=== PATIENT | female | born 1945 | race Caucasian/White ===

== ENCOUNTER 2016-12-11 15:25 | Inpatient (IN) | payer MEDICARE, OTHER ==
--- NOTE | 2016-12-11 15:54 | ER Document Report ---
Doctor's Note Notes: 12/11/16 15:59 71-year-old female history of COPD recent cardiac stents presents with complaints of one to 2 week duration of shortness of breath. Patient was seen by primary care physician diagnosed as pneumonia, was given inhaler and 17, patient has been noted to be satting at 87% on room air at home. Daughter-in- law is a nurse notes that she is not on home O2. Patient on arrival was satting 83% on room air I have greeted and performed a rapid initial assessment of this patient. A comprehensive ED assessment and evaluation of the patient, analysis of test results and completion of the medical decision making process will be conducted by additional ED providers. Lungs: Faint inspiratory respiratory wheezing all throughout
[2016-12-11] MEDS ORDERED: IPRATROPIUM/ALBUTEROL 0.5-2.5 MG/3 ML AMPUL NEB ONE ×3 (15:58→15:59)
[2016-12-11] MEDS ORDERED: METHYLPREDNISOLONE INJ 125 MG/2 ML SDV IV ONE (15:58)
[2016-12-11 16:19] LABS: ABSOLUTE LYMPHOCYTES (AUTO) 1.2 10^3/uL (0.5-4.7); ABSOLUTE MONOCYTES (AUTO) 1.1 10^3/uL (0.1-1.4); BASOPHILS % (AUTO) 0.2 % (0-2); EOSINOPHILS % (AUTO) 0.1 % (0-6); HEMOGLOBIN 11.9 g/dL (12.0-15.5); HGB HCT DIFFERENCE 0.7; LYMPHOCYTES % (AUTO) 10.6 % (13-45); MEAN CORPUSCULAR HEMOGLOBIN 30.2 pg (27.0-33.4); MEAN CORPUSCULAR HGB CONC 33.9 g/dL (32.0-36.0); MEAN CORPUSCULAR VOLUME 89 fl (80-97); MONOCYTES % (AUTO) 10.1 % (3-13); RED BLOOD COUNT 3.94 10^6/uL (3.72-5.28); RED CELL DISTRIBUTION WIDTH 14.5 % (11.5-14.0); WHITE BLOOD COUNT 11.3 10^3/uL (4.0-10.5)
[2016-12-11 16:33] LABS: ALANINE AMINOTRANSFERASE 22 U/L (9-52); ALBUMIN 3.9 g/dL (3.5-5.0); ALKALINE PHOSPHATASE 60 U/L (38-126); ANION GAP 15 (5-19); ASPARTATE AMINO TRANSFERASE 14 U/L (14-36); BILIRUBIN,DIRECT 0.4 mg/dL (0.0-0.4); BILIRUBIN,TOTAL 0.8 mg/dL (0.2-1.3); BLOOD UREA NITROGEN 12 mg/dL (7-20); CALCIUM 9.2 mg/dL (8.4-10.2); CARBON DIOXIDE 27 mmol/L (22-30); CHLORIDE 95 mmol/L (98-107); CREATININE RESULT 0.63 mg/dL (0.52-1.25); GLUCOSE 111 mg/dL (75-110); POTASSIUM 4.2 mmol/L (3.6-5.0); SODIUM 136.6 mmol/L (137-145); TOTAL PROTEIN 7.1 g/dL (6.3-8.2)
[2016-12-11 16:38] LABS: CREATINE KINASE < 20 U/L (30-135)
[2016-12-11 16:45] LABS: CREATINE KINASE MB 0.28 ng/mL (<4.55)
--- NOTE | 2016-12-11 16:45 | ER Document Report ---
ED General - General Chief Complaint: Breathing Difficulty Stated Complaint: DIFFICULTY BREATHING Mode of Arrival: Ambulatory Information source: Patient Notes: This is a 71-year-old female who presents with worsening dyspnea for the past 3 or 4 weeks. She states she has struggled with a cold for the past month. She has had cough and congestion. Her cough has been dry and nonproductive. Today she mentioned to her family that she was short of breath and had no energy and they checked her pulse ox and found it to be 87% on room air. She is not on home oxygen. She does not use nebulizers or inhalers. Secondary to this low pulse ox reading she was brought to the ER by her family. She has received 1 DuoNeb prior to my evaluation and she states she feels just fine. She denies any fevers or chills. She denies any chest pain. TRAVEL OUTSIDE OF THE [place] IN LAST 30 DAYS: No - Related Data Allergies/Adverse Reactions: Penicillins Allergy (Verified 12/11/16 15:36) Sulfa (Sulfonamide Antibiotics) Allergy (Verified 12/11/16 15:36) Past Medical History - General Information source: Patient - Social History Smoking Status: Current Every Day Smoker Frequency of alcohol use: None Drug Abuse: None Family History: Reviewed & Not Pertinent Patient has suicidal ideation: No Patient has homicidal ideation: No - Past Medical History Cardiac Medical History: Reports: Hx Hypertension, Hx Peripheral Vascular Disease Pulmonary Medical History: Reports: None Endocrine Medical History: Reports: Hx Diabetes Mellitus Type 2 Renal/ Medical History: Denies: Hx Peritoneal Dialysis Past Surgical History: Reports: Hx Appendectomy, Hx Hysterectomy Review of Systems - Review of Systems Notes: REVIEW OF SYSTEMS: CONSTITUTIONAL : Denies fever, chills, or sweats. EENT: Denies eye, ear, throat, or mouth pain or symptoms. CARDIOVASCULAR: Denies chest pain. RESPIRATORY: As per history of present illness GASTROINTESTINAL: Denies abdominal pain. Denies nausea, vomiting, or diarrhea. GENITOURINARY: Denies difficulty urinating, painful urination, burning, frequency, or blood in urine. MUSCULOSKELETAL: Denies neck or back pain or joint pain or swelling. SKIN: Denies rash or skin lesions. HEMATOLOGIC : Denies easy bruising or bleeding. LYMPHATIC: Denies swollen, enlarged glands. NEUROLOGICAL: Denies altered mental status or loss of consciousness. Denies headache. PSYCHIATRIC: Denies anxiety or stress or depression. ALL OTHER SYSTEMS REVIEWED AND NEGATIVE. Physical Exam - Vital signs Vitals: Temp Pulse Resp BP Pulse Ox 98.6 F 102 H 20 141/57 H 83 L 12/11/16 15:37 12/11/16 15:37 12/11/16 15:37 12/11/16 15:37 12/11/16 15:37 - Notes Notes: PHYSICAL EXAMINATION: GENERAL: Thin frail elderly female who is pleasant and conversant in no acute distress. HEAD: Atraumatic, normocephalic. EYES: Pupils equal round and reactive to light, extraocular movements intact, sclera anicteric, conjunctiva are normal. ENT: nares patent, oropharynx clear without exudates. Moist mucous membranes. NECK: Normal range of motion, supple without lymphadenopathy LUNGS: Breath sounds clear to auscultation bilaterally and equal. No wheezes rales or rhonchi. HEART: Regular rate and rhythm without murmurs ABDOMEN: Soft, nontender, normoactive bowel sounds. No guarding, no rebound. No masses appreciated. EXTREMITIES: Normal range of motion, no pitting or edema. No cyanosis. NEUROLOGICAL: Cranial nerves grossly intact. Normal speech. No gross focal motor or sensory deficits appreciated. PSYCH: Normal mood, anxious affect. SKIN: Warm, Dry, normal turgor, no rashes or lesions noted. Course - Re-evaluation Re-evalutation: 12/11/16 20:07 Patient states that she feels fine and that she is fine. However she was taken off her nasal cannula O2 in order to ambulate to the bathroom and she was noted to desat to 82% on room air. We discussed her CT angiogram results (negative for PE/infiltrate) and the fact that her symptoms are likely secondary to COPD. She will likely need home O2. She is resistant initially to admission, but now has agreed to stay for regular neb treatments and O2. Questions from patient and family answered - Vital Signs Vital signs: Temp Pulse Resp BP Pulse Ox 98.6 F 102 H 21 H 141/57 H 92 12/11/16 15:37 12/11/16 15:37 12/11/16 18:00 12/11/16 15:37 12/11/16 18:00 - Laboratory Result Diagrams: 12/11/16 15:56 12/11/16 15:56 Laboratory results interpreted by me: 12/11/16 12/11/16 12/11/16 15:56 15:56 17:50 WBC 11.3 H Hgb 11.9 L Hct 35.0 L RDW 14.5 H Seg Neutrophils % 79.0 H Lymphocytes % 10.6 L Absolute Neutrophils 9.0 H VBG pH 7.43 H Sodium 136.6 L Chloride 95 L Glucose 111 H Creatine Kinase < 20 L Urine Ketones 12/11/16 19:45 WBC Hgb Hct RDW Seg Neutrophils % Lymphocytes % Absolute Neutrophils VBG pH Sodium Chloride Glucose Creatine Kinase Urine Ketones 20 H Discharge - Discharge Clinical Impression: COPD exacerbation, Hypoxia Condition: Fair Disposition: ADMITTED OBSERVATION Admitting Provider: Hospitalist - Dr. Hernández Unit Admitted: Telemetry Referrals: TANVI CASTRO MD [Primary Care Provider] - Follow up as needed
[2016-12-11 16:46] LABS: TROPONIN I < 0.012 ng/mL
[2016-12-11 17:59] LABS: VENOUS BLOOD BASE EXCESS 1.7 mmol/L; VENOUS BLOOD HCO3 26.2 mmol/L (20-32); VENOUS BLOOD PCO2 40.4 mmHg (35-63); VENOUS BLOOD PH 7.43 (7.30-7.42)
[2016-12-11] MEDS ORDERED: LEVOFLOXACIN 500 MG/D5W RTU 100 ML IV ONE (19:58)
[2016-12-11 20:02] LABS: APPEARANCE,URINE CLEAR; BILIRUBIN,URINE NEGATIVE (NEGATIVE); GLUCOSE, URINE NEGATIVE (NEGATIVE); KETONES,URINE 20 mg/dL (NEGATIVE); LEUKOCYTE ESTERASE,URINE NEGATIVE (NEGATIVE); NITRITE,URINE NEGATIVE (NEGATIVE); PROTEIN,URINE NEGATIVE (NEGATIVE); UROBILINOGEN,URINE NEGATIVE mg/dL (<2.0)
[2016-12-11] MEDS ORDERED: ACETAMINOPHEN 325 MG TABLET PO PRN (20:07)
[2016-12-11] MEDS ORDERED: GUAIFENESIN SYRP 200 MG/10 ML UDC PO PRN (20:07)
[2016-12-11] MEDS ORDERED: IPRATROPIUM/ALBUTEROL 0.5-2.5 MG/3 ML AMPUL NEB PRN (20:07)
[2016-12-11] MEDS ORDERED: PREDNISONE 20 MG TABLET PO ONE (20:30)
[2016-12-11] MEDS ORDERED: FLUTICASONE NASAL SPRAY 50 MCG/SPRY 120 SPRAY/16 GM ONE (20:51)
[2016-12-11] MEDS: GUAIFENESIN 600 MG TABLET.SA PO SCH (21:06)
[2016-12-11] MEDS: FLUTICASONE NASAL SPRAY 50 MCG/SPRY 120 SPRAY/16 GM NASL SCH (21:06)
[2016-12-11] MEDS: HEPARIN SOD (PORCINE) 5,000 UNIT/ML 1 ML SYRINGE SUBCUT SCH (21:07)
[2016-12-11] MEDS ORDERED: RISPERIDONE 0.25 MG TABLET PO PRN (21:53)
--- NOTE | 2016-12-11 21:53 | PDOC H&P ---
History of Present Illness Admission Date/PCP: 12/11/16 20:18 TANVI CASTRO MD Patient complains of: Worsening baseline shortness of breath History of Present Illness: ARAM SALTER is a 71 year old female with a past medical history of advanced COPD with ongoing tobacco dependence, coronary artery disease, hypertension, peripheral vascular disease and type II diabetes. Noted by family members to be short of breath prompting home pulse oximeter check resulting in 87% on room air. In the emergency room she has mild leukocytosis, tachypnea and tachycardia oxygen saturations in the 80s on room air she's referred to the hospitalist for admission for COPD exacerbation. Past Medical History Cardiac Medical History: Reports: Hypertension, Peripheral Vascular Disease Pulmonary Medical History: Reports: None, Chronic Obstructive Pulmonary Disease (COPD) Endocrine Medical History: Reports: Diabetes Mellitus Type 2 Psychiatric Medical History: Reports: Tobacco Dependency Past Surgical History Past Surgical History: Reports: Appendectomy, Hysterectomy Social History Information Source: Patient, Emergency Med Personnel Lives with: Family Smoking Status: Current Every Day Smoker - Advance Directive Resuscitation Status: Full Code Family History Family History: COPD, Hypertension Parental Family History Reviewed: Yes Children Family History Reviewed: Yes Sibling(s) Family History Reviewed.: Yes Medication/Allergy Allergies/Adverse Reactions: Penicillins Allergy (Verified 12/11/16 15:36) Sulfa (Sulfonamide Antibiotics) Allergy (Verified 12/11/16 15:36) Review of Systems Constitutional: ABSENT: chills, fever(s), headache(s), weight gain, weight loss Eyes: ABSENT: visual disturbances Ears: ABSENT: hearing changes Cardiovascular: ABSENT: chest pain, dyspnea on exertion, edema, orthropnea, palpitations Respiratory: PRESENT: dyspnea. ABSENT: cough, hemoptysis, sputum Gastrointestinal: ABSENT: abdominal pain, constipation, diarrhea, hematemesis, hematochezia, nausea, vomiting Genitourinary: ABSENT: dysuria, hematuria Musculoskeletal: ABSENT: joint swelling Integumentary: ABSENT: rash, wounds Neurological: PRESENT: as per HPI Psychiatric: PRESENT: other - Odd affect dismissive of medical personnel, wearing sunglasses, talking on the phone. ABSENT: anxiety, depression, homidical ideation, suicidal ideation Endocrine: ABSENT: cold intolerance, heat intolerance, polydipsia, polyuria Hematologic/Lymphatic: ABSENT: easy bleeding, easy bruising Physical Exam Vital Signs: Temp Pulse Resp BP Pulse Ox 98.6 F 102 H 21 H 141/57 H 92 12/11/16 15:37 12/11/16 15:37 12/11/16 18:00 12/11/16 15:37 12/11/16 18:00 General appearance: PRESENT: mild distress, thin Head exam: PRESENT: atraumatic, normocephalic Eye exam: PRESENT: conjunctiva pink, EOMI, PERRLA. ABSENT: scleral icterus Ear exam: PRESENT: bleeding Mouth exam: PRESENT: moist, tongue midline Neck exam: ABSENT: carotid bruit, JVD, lymphadenopathy, thyromegaly Respiratory exam: PRESENT: accessory muscle use, crackles, prolonged expiratory phas, symmetrical, tachypnea Cardiovascular exam: PRESENT: RRR. ABSENT: diastolic murmur, rubs, systolic murmur Pulses: PRESENT: normal dorsalis pedis pul Vascular exam: PRESENT: normal capillary refill GI/Abdominal exam: PRESENT: normal bowel sounds, soft. ABSENT: distended, guarding, mass, organolmegaly, rebound, tenderness Rectal exam: PRESENT: deferred Extremities exam: PRESENT: full ROM. ABSENT: calf tenderness, clubbing, pedal edema Neurological exam: PRESENT: alert, awake, oriented to person, oriented to place , oriented to time, oriented to situation, CN II-XII grossly intact. ABSENT: motor sensory deficit Psychiatric exam: PRESENT: unusual affect Skin exam: PRESENT: dry, intact, warm. ABSENT: cyanosis, rash Results Impressions: Chest X-Ray 12/11/16 15:53 IMPRESSION: NO ACUTE RADIOGRAPHIC FINDING IN THE CHEST. Chest/Abdomen CTA 12/11/16 18:18 IMPRESSION: No acute findings. No evidence of pulmonary emboli. Assessment & Plan - Diagnosis (1) COPD exacerbation Is this a current diagnosis for this admission?: YesPlan: Should be observed on a monitored bed with oxygen, symptomatic management Flonase, Claritin, DuoNeb, and flutter valve (2) Hypoxia Is this a current diagnosis for this admission?: YesPlan: Secondary to the above continue supplemental oxygen (3) Acute exacerbation of chronic bronchitis Plan: Please see #1 in addition to empiric antibiotics (4) Tobacco dependence Is this a current diagnosis for this admission?: YesPlan: Tobacco Dependence patient received tobacco cessation counseling and offered nicotine replacement options - Time Time Spent: 30 to 50 Minutes
--- NOTE | 2016-12-12 00:06 | EKG REPORT ---
SEVERITY:- ABNORMAL ECG - SINUS RHYTHM : Confirmed by: Tacho Alonzo 12-Dec-2016 00:05:26
[2016-12-12] MEDS ORDERED: LACTULOSE SYRUP 20 GM/30 ML UDCUP PO ONE (00:43)
[2016-12-12 04:46] LABS: HEMATOCRIT 33.5 % (36.0-47.0); HEMOGLOBIN 11.2 g/dL (12.0-15.5); HGB HCT DIFFERENCE 0.1; MEAN CORPUSCULAR HGB CONC 33.5 g/dL (32.0-36.0); MEAN CORPUSCULAR VOLUME 90 fl (80-97); RED BLOOD COUNT 3.74 10^6/uL (3.72-5.28); RED CELL DISTRIBUTION WIDTH 14.2 % (11.5-14.0); WHITE BLOOD COUNT 10.4 10^3/uL (4.0-10.5)
[2016-12-12 05:03] LABS: ANION GAP 17 (5-19); BLOOD UREA NITROGEN 20 mg/dL (7-20); CALCIUM 9.1 mg/dL (8.4-10.2); CARBON DIOXIDE 23 mmol/L (22-30); CHLORIDE 97 mmol/L (98-107); CREATININE RESULT 0.56 mg/dL (0.52-1.25); GLUCOSE 302 mg/dL (75-110); POTASSIUM 3.6 mmol/L (3.6-5.0); SODIUM 136.7 mmol/L (137-145)
[2016-12-12] MEDS: HEPARIN SOD (PORCINE) 5,000 UNIT/ML 1 ML SYRINGE SUBCUT SCH ×3 (05:25→22:46)
[2016-12-12] MEDS: IPRATROPIUM/ALBUTEROL 0.5-2.5 MG/3 ML AMPUL NEB SCH ×3 (08:32→19:41)
[2016-12-12] MEDS: PREDNISONE 20 MG TABLET PO SCH ×2 (09:28→17:06)
[2016-12-12] MEDS: GUAIFENESIN 600 MG TABLET.SA PO SCH ×2 (09:28→22:46)
[2016-12-12] MEDS: FLUTICASONE NASAL SPRAY 50 MCG/SPRY 120 SPRAY/16 GM NASL SCH ×2 (09:29→22:46)
[2016-12-12] MEDS ORDERED: HALOPERIDOL 5 MG TABLET PO PRN (12:20)
[2016-12-12] MEDS ORDERED: GLUCAGON,HUMAN RECOMB 1 MG INJ IM PRN (12:21)
[2016-12-12] MEDS ORDERED: INSULIN LISPRO 100 UNIT/ML 3 ML VIAL SUBCUT PRN (12:21)
[2016-12-12] MEDS ORDERED: DEXTROSE 40% GEL 15 GM TUBE PO PRN ×2 (12:21)
[2016-12-12] MEDS ORDERED: DEXTROSE 50%-WATER 25 GM/50 ML DISP.SYRIN IV PRN ×2 (12:21)
--- NOTE | 2016-12-12 14:44 | PDOC PROGRESS REPORT ---
Subjective Progress Note for:: 12/12/16 Subjective:: Patient reports that her oxygen is always low. She doesn't feel like she needs oxygen. Patient also reports that she has no intention of stopping smoking. Patient complains of anxiety and marital discord. Patient denies chest pain, shortness of breath, abdominal pain, nausea, vomiting , fevers, chills, diarrhea, constipation, headache, new onset weakness. Physical Exam Vital Signs: Temp Pulse Resp BP Pulse Ox 97.3 F 80 19 155/71 H 95 12/12/16 12:00 12/12/16 12:00 12/12/16 12:00 12/12/16 12:00 12/12/16 12:00 Intake & Output 12/11/16 12/12/16 12/13/16 06:59 06:59 06:59 Intake Total 760 Balance 760 Weight 56.5 kg Exam: General: Awake alert and oriented x3, no acute respiratory distress, thin HEENT: AT/NC, PERRL, EOMI, oropharynx is moist, pink, no scleral icterus, no conjunctival injection Neck: No JVD, trachea midline Chest: Bilateral end expiratory wheezes CV: Regular rate and rhythm, normal S1 and S2, no murmur, rub, or gallop Abdomen: Soft, nontender to palpation, nondistended, active bowel sounds; no rebound, rigidity, or guarding Extremities: No cyanosis, clubbing or edema Neuro: Cranial nerves II through XII are grossly intact without focal deficits; awake alert and oriented x3 Psych: Normal mood and affect Results Laboratory Results: 12/12/16 04:21 12/12/16 04:21 12/12/16 12/12/16 04:21 04:21 WBC 10.4 RBC 3.74 Hgb 11.2 L Hct 33.5 L MCV 90 MCH 30.0 MCHC 33.5 RDW 14.2 H Plt Count 225 Sodium 136.7 L Potassium 3.6 Chloride 97 L Carbon Dioxide 23 Anion Gap 17 BUN 20 Creatinine 0.56 Est GFR ( Amer) > 60 Est GFR (Non-Af Amer) > 60 Glucose 302 H Calcium 9.1 Impressions: Chest X-Ray 12/11/16 15:53 IMPRESSION: NO ACUTE RADIOGRAPHIC FINDING IN THE CHEST. Chest/Abdomen CTA 12/11/16 18:18 IMPRESSION: No acute findings. No evidence of pulmonary emboli. Assessment & Plan - Diagnosis (1) COPD exacerbation Is this a current diagnosis for this admission?: YesPlan: Patient on prednisone Levaquin for this. Continue scheduled nebulized treatments Still symptomatic continue to monitor (2) Acute hypoxemic respiratory failure Is this a current diagnosis for this admission?: YesPlan: Patient will need home oxygen. She is 88% rest on room air (3) Mild protein-calorie malnutrition Is this a current diagnosis for this admission?: YesPlan: Patient with a BMI of 17.4. Encourage by mouth intake of food (4) Diabetes mellitus Qualifiers: Diabetes mellitus type: type 2 Diabetes mellitus complication status: with unspecified complications Diabetes mellitus dedicated intermodal truck driver insulin use: without dedicated intermodal truck driver use Qualified Code(s): E11.8 - Type 2 diabetes mellitus with unspecified complications Is this a current diagnosis for this admission?: YesPlan: Resume patient's metformin Will need sliding scale insulin while on steroids. Consider increasing metformin as outpatient (5) Tobacco dependence Is this a current diagnosis for this admission?: YesPlan: Have offered nicotine replacement. She has declined. Have counseled for more than 3 minutes (6) Anemia Qualifiers: Anemia type: unspecified type Qualified Code(s): D64.9 - Anemia, unspecified Is this a current diagnosis for this admission?: Yes - Time Time Spent with patient: 25-34 minutes Medications reviewed and adjusted accordingly: Yes Anticipated discharge: Home Within: within 24 hours, within 48 hours
[2016-12-12] MEDS ORDERED: LISINOPRIL 10 MG TABLET PO ONE (15:00)
[2016-12-12] MEDS: METFORMIN HCL 500 MG TABLET PO SCH (16:07)
[2016-12-12] MEDS ORDERED: HALOPERIDOL LACTATE INJ 5 MG/1 ML VIAL IV ONE (17:00)
[2016-12-13] MEDS: HEPARIN SOD (PORCINE) 5,000 UNIT/ML 1 ML SYRINGE SUBCUT SCH (05:36)
[2016-12-13] MEDS: IPRATROPIUM/ALBUTEROL 0.5-2.5 MG/3 ML AMPUL NEB SCH (08:49)
[2016-12-13] MEDS: PREDNISONE 20 MG TABLET PO SCH (09:52)
[2016-12-13] MEDS: FLUTICASONE NASAL SPRAY 50 MCG/SPRY 120 SPRAY/16 GM NASL SCH (09:52)
[2016-12-13] MEDS: GUAIFENESIN 600 MG TABLET.SA PO SCH (09:52)
[2016-12-13] MEDS: METFORMIN HCL 500 MG TABLET PO SCH (09:52)
[2016-12-13 09:56] VITALS: BP 172/66
[2016-12-13] MEDS ORDERED: (PENDING PHARMACY ID) (Metformin Hcl [Metformin Hcl Er] 500 MG) PO SCH (10:00)
[2016-12-13] MEDS ORDERED: CLOPIDOGREL BISULFATE 75 MG TABLET PO SCH (10:00)
[2016-12-13] MEDS ORDERED: LISINOPRIL 10 MG TABLET PO SCH (10:00)
[2016-12-13] MEDS ORDERED: LEVOFLOXACIN 750 MG/D5W RTU 750 MG/150 ML RTUPB IV SCH ×2 (10:00→22:00)
--- NOTE | 2016-12-13 20:40 | PDOC DISCHARGE SUMMARY ---
General - Admit/Disc Date/PCP Admission Date/Primary Care Provider: 12/12/16 14:37 TANVI CASTRO MD Discharge Date: 12/13/16 - Discharge Diagnosis (1) COPD exacerbation Is this a current diagnosis for this admission?: Yes (2) Acute hypoxemic respiratory failure Is this a current diagnosis for this admission?: Yes (3) Mild protein-calorie malnutrition Is this a current diagnosis for this admission?: Yes (4) Diabetes mellitus Is this a current diagnosis for this admission?: Yes (5) Tobacco dependence Is this a current diagnosis for this admission?: Yes (6) Anemia Is this a current diagnosis for this admission?: Yes - Additional Information Resuscitation Status: Full Code Discharge Diet: Cardiac, Diabetic Discharge Activity: Activity As Tolerated Home Medications: Aspirin [Aspirin 81 mg Chewable Tablet] 81 mg PO Q2DAYS 12/12/16 Clopidogrel Bisulfate [Plavix 75 mg Tablet] 75 mg PO DAILY 12/12/16 Metformin HCl [Metformin HCl ER] 500 mg PO DAILY 12/12/16 Fluticasone Propionate [Flonase Nasal Mitchell 50 Mcg/Mitchell 16 gm] 2 spray NASL DAILY #1 spray.pump 12/13/16 Haloperidol [Haldol 5 mg Tablet] 5 mg PO Q6HP PRN #30 tablet 12/13/16 Lisinopril 20 mg PO DAILY #30 tablet 12/13/16 Prednisone [Deltasone 20 mg Tablet] 40 mg PO BID #28 tablet 12/13/16 History of Present Illness History of Present Illness: Please see H&P for full history of present illness Hospital Course Hospital Course: Patient 71-year-old female known history of COPD who presents to the emergency department with shortness of breath. Patient was admitted because her saturation was found to be 83%. Patient was placed on oral steroids and oxygen with improvement. Over the next 36 hours patient did well and was able to wean from oxygen with ambulating pulse ox being no less than 89. Patient was discharged home in stable condition. It should be noted the patient was quite noncompliant during her visit and often refused to therapy. Patient was given oral Haldol with some relief of her anxiety. Concern for giving this patient a benzodiazepine as she does have significant COPD. She is advised follow with her primary care physician in regards to her anxiety. Physical Exam Vital Signs: Temp Pulse Resp BP Pulse Ox 98.7 F 81 16 172/66 H 93 12/13/16 09:53 12/13/16 09:53 12/13/16 09:53 12/13/16 09:53 12/13/16 09:53 Intake & Output 12/12/16 12/13/16 12/14/16 06:59 06:59 06:59 Intake Total 640 Balance 640 Exam: General: Awake alert and oriented x3, no acute respiratory distress, thin HEENT: AT/NC, PERRL, EOMI, oropharynx is moist, pink, no scleral icterus, no conjunctival injection Neck: No JVD, trachea midline Chest: CTAB CV: Regular rate and rhythm, normal S1 and S2, no murmur, rub, or gallop Abdomen: Soft, nontender to palpation, nondistended, active bowel sounds; no rebound, rigidity, or guarding Extremities: No cyanosis, clubbing or edema Neuro: Cranial nerves II through XII are grossly intact without focal deficits; awake alert and oriented x3 Psych: Normal mood and affect Results Impressions: Chest X-Ray 12/11/16 15:53 IMPRESSION: NO ACUTE RADIOGRAPHIC FINDING IN THE CHEST. Chest/Abdomen CTA 12/11/16 18:18 IMPRESSION: No acute findings. No evidence of pulmonary emboli. Qualifiers PATEINT BEING DISCHARGED WITH ANY OF THE FOLLOWING DIAGNOSIS?: No Plan Time Spent: Less than 30 Minutes
[2016-12-14] MEDS ORDERED: ASPIRIN 81 MG TABLET, CHEWABLE PO SCH (10:00)
== END 2016-12-13 12:08 | disposition home or self-care (01) | DRG 189 ==
LOC: ER 15:25 → EH 20:08 → UNDOADMOB 20:18 → EH 20:18 → 5 22:52 → OBSVTOIN 12-12 14:37
PROVIDERS: ADMIT Internal Medicine; ATTEND Internal Medicine
PROC: 3E0F7GC Introduction of Other Therapeutic Substance into Respiratory Tract, Via Natural or Artificial Opening (ICD-10-PCS; principal; 2016-12-12)
DX: J96.01 Acute respiratory failure with hypoxia (principal); J44.1 Chronic obstructive pulmonary disease with (acute) exacerbation; E44.1 Mild protein-calorie malnutrition; Z68.1 Body mass index [BMI] 19.9 or less, adult; E11.9 Type 2 diabetes mellitus without complications; D64.9 Anemia, unspecified; F41.9 Anxiety disorder, unspecified; Z91.19 Patient's noncompliance with other medical treatment and regimen; I10 Essential (primary) hypertension; I73.9 Peripheral vascular disease, unspecified; I25.10 Atherosclerotic heart disease of native coronary artery without angina pectoris; Z90.710 Acquired absence of both cervix and uterus; Z79.84 Long term (current) use of oral hypoglycemic drugs; Z79.82 Long term (current) use of aspirin; Z79.899 Other long term (current) drug therapy; Z95.5 Presence of coronary angioplasty implant and graft; F17.200 Nicotine dependence, unspecified, uncomplicated; Z88.1 Allergy status to other antibiotic agents; Z88.0 Allergy status to penicillin
CPT/HCPCS: 36415; 71010; 71275; 80048; 80053; 81001; 82550; 82553; 82803; 83605; 84484; 85025; 85027; 85610; 87040; 87086; 93005; 93010; 94640; 94668; 96365; 96372; 96375; 99285; G0378; J1644; J1956; J2930; J3490; J7512; J7620

== ENCOUNTER → 2017-08-22 | Outpatient (CLI) | payer MEDICARE, OTHER ==
[2017-08-22 16:30] LABS: ABSOLUTE BASOPHILS # (AUTO) 0.1 10^3/uL (0.0-0.2); ABSOLUTE EOSINOPHILS # (AUTO) 0.1 10^3/uL (0.0-0.6); ABSOLUTE LYMPHOCYTES (AUTO) 2.2 10^3/uL (0.5-4.7); ABSOLUTE MONOCYTES (AUTO) 0.7 10^3/uL (0.1-1.4); ABSOLUTE NEUT (AUTO) 6.1 10^3/uL (1.7-8.2); BASOPHILS % (AUTO) 0.7 % (0-2); EOSINOPHILS % (AUTO) 1.4 % (0-6); HEMATOCRIT 38.5 % (36.0-47.0); HEMOGLOBIN 12.9 g/dL (12.0-15.5); HGB HCT DIFFERENCE 0.2; MEAN CORPUSCULAR HEMOGLOBIN 31.6 pg (27.0-33.4); MEAN CORPUSCULAR HGB CONC 33.6 g/dL (32.0-36.0); MEAN CORPUSCULAR VOLUME 94 fl (80-97); MONOCYTES % (AUTO) 7.6 % (3-13); RED CELL DISTRIBUTION WIDTH 13.8 % (11.5-14.0); SEGMENTED NEUTROPHILS % (AUTO) 66.3 % (42-78); WHITE BLOOD COUNT 9.2 10^3/uL (4.0-10.5)
[2017-08-22 16:53] LABS: ALANINE AMINOTRANSFERASE 32 U/L (9-52); ALBUMIN 4.2 g/dL (3.5-5.0); ALKALINE PHOSPHATASE 53 U/L (38-126); ANION GAP 8 (5-19); ASPARTATE AMINO TRANSFERASE 17 U/L (14-36); BILIRUBIN,DIRECT 0.4 mg/dL (0.0-0.4); BILIRUBIN,TOTAL 0.5 mg/dL (0.2-1.3); BLOOD UREA NITROGEN 12 mg/dL (7-20); CALCIUM 9.5 mg/dL (8.4-10.2); CARBON DIOXIDE 30 mmol/L (22-30); CHLORIDE 101 mmol/L (98-107); CREATININE RESULT 0.55 mg/dL (0.52-1.25); GLUCOSE 95 mg/dL (75-110); POTASSIUM 4.8 mmol/L (3.6-5.0); SODIUM 139.3 mmol/L (137-145); TOTAL PROTEIN 6.9 g/dL (6.3-8.2)
== END ==
LOC: OD 15:20
PROVIDERS: ATTEND Physician Assistant
DX: R19.4 Change in bowel habit (principal)
CPT/HCPCS: 36415; 80053; 84443; 85025

== ENCOUNTER 2019-01-14 13:18 | Emergency (ER) | payer MEDICARE, OTHER ==
--- NOTE | 2019-01-14 13:56 | RADIOLOGY REPORT (SQ) ---
EXAM DESCRIPTION: HIP RIGHT AP/LATERAL COMPLETED DATE/TIME: 01/14/2019 1:46 pm REASON FOR STUDY: fall COMPARISON: None. NUMBER OF VIEWS: Two views. TECHNIQUE: AP pelvis and additional frog-leg view of the right hip. LIMITATIONS: None. FINDINGS: MINERALIZATION: Normal. RIGHT HIP: Comminuted right femoral neck inter-trochanteric fracture with mild impaction. No joint d islocation. No worrisome bone lesions. LEFT HIP: No fracture or dislocation. No worrisome bone lesions. PUBIS AND ISCHIUM: No fracture. PELVIS: No fracture. SACRUM: No fracture or dislocation. No worrisome bone lesions. LOWER LUMBAR SPINE: Degenerative disc disease. SOFT TISSUES: Right Femoral artery stent. OTHER: No other significant finding. IMPRESSION: Comminuted right femoral neck inter-trochanteric fracture with mild impaction. No joint dislocation. TECHNICAL DOCUMENTATION: JOB ID: [id number] [id number] 2010 [employer]- All Rights Reserved Reading location - IP/workstation name: [email or web address]
--- NOTE | 2019-01-14 14:28 | ER Document Report ---
ED General - General Chief Complaint: Hip Injury Stated Complaint: RIGHT HIP PAIN Time Seen by Provider: 01/14/19 14:12 Primary Care Provider: ROMARIO JARA PA-C [NURSE PRACTITIONER] - Follow up as needed Notes: Patient is a 73-year-old female with COPD and hypertension that presents to the emergency department for chief complaint of fall and hip injury. Patient states that at around 1:15 PM today, she was washing her hair in her kitchen, and she went to turn and she accidentally slipped and fell and hit her head, and fell onto her right side. She is complaining of pain in her right hip mainly currently relates it as a 4 out of 10, she did receive fentanyl by EMS, which did help with her pain. She states she did hit her head but did not lose consciousness, she had on the right side. She is not sure what she hit it on though. She thinks it was the sink. She is also complaining of some mild pain on the right side in the rib area. She denies any chest pain, shortness of breath, difficulty breathing, nausea, vomiting or neck pain. Denies any numbness, weakness or tingling. Past Medical History: Hypertension, COPD, history of bladder cancer, vertigo Past Surgical History: Stent to the femoral artery Social History: Former smoker, denies alcohol or drug use. Family History: Reviewed and noncontributory for presenting illness Allergies: Reviewed, see documented allergy list. REVIEW OF SYSTEMS: Other than noted above, the 12 point review of systems was reviewed with the patient and were negative, all pertinent findings are included in the HPI. PHYSICAL EXAMINATION: Vital signs reviewed, nursing noted reviewed. GENERAL: Well-appearing, well-nourished and in no acute distress. HEAD: Scalp hematoma measuring 3 cm in diameter, no active bleeding or laceration noted, this is noted on the right frontal portion of the scalp, normocephalic. EYES: Eyes appear normal, extraocular movements intact, sclera anicteric, conjunctiva are normal. ENT: nares patent, oropharynx clear without exudates. Moist mucous membranes. NECK: Normal range of motion, supple without lymphadenopathy LUNGS: Breath sounds clear to auscultation bilaterally and equal. No wheezes rales or rhonchi. Minimal rib tenderness on the right lower lateral ribs. HEART: Regular rate and rhythm without murmurs ABDOMEN: Soft, nontender, normoactive bowel sounds. No rebound, guarding, or rigidity. No masses appreciated. EXTREMITIES: Gross deformity to the right hip, currently flexed, and externally rotated. Neurovascular intact distally, DP pulses are +2/4 equally and bilaterally, sensation and motor intact distally in both lower extremities and upper extremities. NEUROLOGICAL: No focal neurological deficits. Moves all extremities spontaneously Motor and sensory grossly intact on exam. PSYCH: Normal mood, normal affect. SKIN: Warm, Dry, normal turgor, no rashes or lesions noted on exposed skin TRAVEL OUTSIDE OF THE [place] IN LAST 30 DAYS: No - Related Data Allergies/Adverse Reactions: Penicillins Allergy (Verified 12/11/16 15:36) Sulfa (Sulfonamide Antibiotics) Allergy (Verified 12/11/16 15:36) Past Medical History - Social History Smoking Status: Current Every Day Smoker Family History: COPD, Hypertension Patient has suicidal ideation: No Patient has homicidal ideation: No - Past Medical History Cardiac Medical History: Reports: Hx Hypertension, Hx Peripheral Vascular Disease Pulmonary Medical History: Reports: Hx COPD Endocrine Medical History: Reports: Hx Diabetes Mellitus Type 2 Renal/ Medical History: Denies: Hx Peritoneal Dialysis Past Surgical History: Reports: Hx Appendectomy, Hx Hysterectomy Physical Exam - Vital signs Vitals: Resp Pulse Ox 19 92 01/14/19 13:24 01/14/19 13:24 Course - Re-evaluation Re-evalutation: Patient seen and examined vital signs reviewed. Laboratory data and imaging were ordered as appropriate for the patient's presenting symptoms and complaint, with consideration of any critical or life threatening conditions that may be associated with their obtained history and exam as noted above. Patient was treated with IV fentanyl for pain, initially, and patient was having more pain therefore was given IV Dilaudid which did seem to help her better. Results were reviewed when available and demonstrated acute right comminuted intertrochanteric fracture, CT of the head and neck were negative for any acute fracture or intracranial injury, chest x-ray was unremarkable. The patient was re-evaluated and was improved after treatment with pain medication Evaluation was most consistent with acute right hip fracture, fall, he did not h ave orthopedics human resources consultant at this institution, therefore call was placed to transfer the patient. Results were discussed with the patient at this point after careful consideration I feel that that [facility] acute hip fracture and need for orthopedic evaluation, discussed with Dr. Andrea Galaviz This was discussed with the patient that it is in the best interest for their care to be transferred, the risks and benefits of transfer were discussed, including but not limited to clinical deterioration during transport, respiratory distress, and potential for traumatic injuries. Patient agreed with this plan of care. *Note is created using voice recognition software and may contain spelling, syntax or grammatical errors. Laboratory 01/14/19 01/14/19 01/14/19 14:39 14:39 14:39 WBC 11.1 H RBC 3.83 Hgb 11.8 L Hct 35.8 L MCV 93 MCH 30.9 MCHC 33.1 RDW 14.0 Plt Count 166 Seg Neutrophils % 88.8 H Lymphocytes % 6.5 L Monocytes % 3.9 Eosinophils % 0.4 Basophils % 0.4 Absolute Neutrophils 9.8 H Absolute Lymphocytes 0.7 Absolute Monocytes 0.4 Absolute Eosinophils 0.0 Absolute Basophils 0.0 Sodium 139.7 Potassium 3.9 Chloride 101 Carbon Dioxide 31 H Anion Gap 8 BUN 14 Creatinine 0.49 L Est GFR ( Amer) > 60 Est GFR (Non-Af Amer) > 60 Glucose 162 H Calcium 9.0 Blood Type A NEGATIVE Antibody Screen NEGATIVE Hip/Pelvis X-Ray 01/14/19 13:24 IMPRESSION: Comminuted right femoral neck inter-trochanteric fracture with mild impaction. No joint dislocation. Cervical Spine CT 01/14/19 14:26 IMPRESSION: CHRONIC DEGENERATIVE CHANGES. NO ACUTE FINDINGS. Chest X-Ray 01/14/19 14:26 IMPRESSION: NO ACUTE RADIOGRAPHIC FINDING IN THE CHEST. No obvious rib fra ctures. Head CT 01/14/19 14:26 IMPRESSION: NORMAL BRAIN CT WITHOUT CONTRAST. EVIDENCE OF ACUTE STROKE: NO. 01/14/19 19:20 Patient seen and examined just prior to transfer, transfer team arrived, patient stable condition, and ready for transfer. - Vital Signs Vital signs: Temp Pulse Resp BP Pulse Ox 98.2 F 16 170/84 H 97 01/14/19 19:19 01/14/19 19:18 01/14/19 19:19 01/14/19 19:19 - Laboratory Result Diagrams: 01/14/19 14:39 01/14/19 14:39 Laboratory results interpreted by me: 01/14/19 01/14/19 14:39 14:39 WBC 11.1 H Hgb 11.8 L Hct 35.8 L Seg Neutrophils % 88.8 H Lymphocytes % 6.5 L Absolute Neutrophils 9.8 H Carbon Dioxide 31 H Creatinine 0.49 L Glucose 162 H - EKG Interpretation by Me Additional EKG results interpreted by me: EKG demonstrates sinus rhythm with a ventricular rate of 80 bpm, normal axis, QTC 462 ms, no evidence of acute ischemia in this EKG, compared with prior EKG from 12/11/2016, without significant change. Discharge - Discharge Clinical Impression: Intertrochanteric fracture of right femur Qualifiers: Encounter type: initial encounter Fracture type: closed Fracture alignment: displaced Qualified Code(s): S72.141A - Displaced intertrochanteric fracture of right femur, initial encounter for closed fracture Fall Qualifiers: Encounter type: initial encounter Qualified Code(s): W19.XXXA - Unspecified fall, initial encounter Closed head injury Qualifiers: Encounter type: initial encounter Qualified Code(s): S09.90XA - Unspecified injury of head, initial encounter Condition: Stable Disposition: [facility] Referrals: ROMARIO JARA PA-C [NURSE PRACTITIONER] - Follow up as needed
[2019-01-14 14:54] LABS: ABSOLUTE LYMPHOCYTES (AUTO) 0.7 10^3/uL (0.5-4.7); ABSOLUTE MONOCYTES (AUTO) 0.4 10^3/uL (0.1-1.4); ABSOLUTE NEUT (AUTO) 9.8 10^3/uL (1.7-8.2); BASOPHILS % (AUTO) 0.4 % (0-2); EOSINOPHILS % (AUTO) 0.4 % (0-6); HEMATOCRIT 35.8 % (36.0-47.0); HEMOGLOBIN 11.8 g/dL (12.0-15.5); LYMPHOCYTES % (AUTO) 6.5 % (13-45); MEAN CORPUSCULAR HEMOGLOBIN 30.9 pg (27.0-33.4); MEAN CORPUSCULAR HGB CONC 33.1 g/dL (32.0-36.0); MEAN CORPUSCULAR VOLUME 93 fl (80-97); MONOCYTES % (AUTO) 3.9 % (3-13); PLATELET COUNT 166 10^3/uL (150-450); RED BLOOD COUNT 3.83 10^6/uL (3.72-5.28); SEGMENTED NEUTROPHILS % (AUTO) 88.8 % (42-78); TOTAL CELLS COUNTED % (AUTO) 100 %; WHITE BLOOD COUNT 11.1 10^3/uL (4.0-10.5)
[2019-01-14 15:12] LABS: ANION GAP 8 (5-19); BLOOD UREA NITROGEN 14 mg/dL (7-20); CARBON DIOXIDE 31 mmol/L (22-30); CHLORIDE 101 mmol/L (98-107); GLUCOSE 162 mg/dL (75-110); POTASSIUM 3.9 mmol/L (3.6-5.0); SODIUM 139.7 mmol/L (137-145)
[2019-01-14] MEDS ORDERED: KETOROLAC TROMETHAMINE INJ/PF 30 MG/1 ML SDV IV ONE (15:20)
--- NOTE | 2019-01-14 15:28 | RADIOLOGY REPORT (SQ) ---
EXAM DESCRIPTION: CT CERVICAL SPINE WITHOUT COMPLETED DATE/TIME: 01/14/2019 3:18 pm REASON FOR STUDY: fall, head injury COMPARISON: None. TECHNIQUE: Axial images acquired through the cervical spine without intravenous contrast. Images re viewed with lung, soft tissue and bone windows. Reconstructed coronal and sagittal MPR images review ed. Images stored on PACS. All CT scanners at this facility use dose modulation, iterative reconstruction, and/or weight based d osing when appropriate to reduce radiation dose to as low as reasonably achievable (ALARA). [facility]: Dose Right [facility]: CareDose [facility]: Dose Right [facility]: Teradose 4D [facility]: [employer] RADIATION DOSE: CT Rad equipment meets quality standard of care and radiation dose reduction techniq ues were employed. CTDIvol: 8.6 mGy. DLP: 203 mGy-cm. mGy. LIMITATIONS: None. FINDINGS: ALIGNMENT: Anatomic. MINERALIZATION: Normal. VERTEBRAL BODIES: No fractures or dislocation. DISCS: Multilevel disc space narrowing with osteophytes. FACETS, LATERAL MASSES, POSTERIOR ELEMENTS: Facet arthropathy. No fractures. No dislocation. No ac rod findings. HARDWARE: None in the spine. VISUALIZED RIBS: No fractures. LUNG APICES AND SOFT TISSUES: No significant or acute findings. OTHER: Carotid artery calcification. IMPRESSION: CHRONIC DEGENERATIVE CHANGES. NO ACUTE FINDINGS. TECHNICAL DOCUMENTATION: JOB ID: [id number] Quality ID # [id number]: Final reports with documentation of one or more dose reduction techniques (e.g., Au tomated exposure control, adjustment of the mA and/or kV according to patient size, use of iterative reconstruction technique) 2010 [employer]- All Rights Reserved Reading location - IP/workstation name: [email or web address]
--- NOTE | 2019-01-14 15:28 | RADIOLOGY REPORT (SQ) ---
EXAM DESCRIPTION: CT HEAD WITHOUT COMPLETED DATE/TIME: 01/14/2019 3:18 pm REASON FOR STUDY: fall, head injury COMPARISON: None. TECHNIQUE: Axial images acquired through the brain without intravenous contrast. Images reviewed wi th bone, brain and subdural windows. Additional sagittal and coronal reconstructions were generated. Images stored on PACS. All CT scanners at this facility use dose modulation, iterative reconstruction, and/or weight based d osing when appropriate to reduce radiation dose to as low as reasonably achievable (ALARA). [facility]: Dose Right [facility]: CareDose [facility]: Dose Right [facility]: Teradose 4D [facility]: Smart [employer] RADIATION DOSE: CT Rad equipment meets quality standard of care and radiation dose reduction techniq ues were employed. CTDIvol: 53.2 mGy. DLP: 1017 mGy-cm. mGy. LIMITATIONS: None. FINDINGS: VENTRICLES: Normal size and contour. CEREBRUM: No masses. No hemorrhage. No midline shift. No evidence for acute infarction. Normal gra y/white matter differentiation. No areas of low density in the white matter. CEREBELLUM: No masses. No hemorrhage. No alteration of density. No evidence for acute infarction. EXTRAAXIAL SPACES: No fluid collections. No masses. ORBITS AND GLOBE: No intra- or extraconal masses. Normal contour of globe without masses. CALVARIUM: No fracture. PARANASAL SINUSES: No fluid or mucosal thickening. SOFT TISSUES: No mass or hematoma. OTHER: No other significant finding. IMPRESSION: NORMAL BRAIN CT WITHOUT CONTRAST. EVIDENCE OF ACUTE STROKE: NO. COMMENT: Quality ID # [id number]: Final reports with documentation of one or more dose reduction techniques (e.g., Automated exposure control, adjustment of the mA and/or kV according to patient size, use of iterative reconstruction technique) TECHNICAL DOCUMENTATION: JOB ID: [id number] [employer]- All Rights Reserved Reading location - IP/workstation name: [email or web address]
--- NOTE | 2019-01-14 15:34 | RADIOLOGY REPORT (SQ) ---
EXAM DESCRIPTION: CHEST SINGLE VIEW COMPLETED DATE/TIME: 01/14/2019 3:26 pm REASON FOR STUDY: fall, rib pain COMPARISON: 10/23/2010 EXAM PARAMETERS: NUMBER OF VIEWS: One view. TECHNIQUE: Single frontal radiographic view of the chest acquired. RADIATION DOSE: NA LIMITATIONS: None. FINDINGS: LUNGS AND PLEURA: No opacities, masses or pneumothorax. No pleural effusion. MEDIASTINUM AND HILAR STRUCTURES: No masses. Contour normal. HEART AND VASCULAR STRUCTURES: Heart normal in size. Normal vasculature. BONES: No acute findings. HARDWARE: None in the chest. OTHER: No other significant finding. IMPRESSION: NO ACUTE RADIOGRAPHIC FINDING IN THE CHEST. No obvious rib fractures. TECHNICAL DOCUMENTATION: JOB ID: [id number] [email or web address]- All Rights Reserved Reading location - IP/workstation name: [email or web address]
[2019-01-14] MEDS ORDERED: FENTANYL CITRATE INJ/PF 100 MCG/2 ML AMPUL IV ONE (16:25)
[2019-01-14] MEDS ORDERED: HYDROMORPHONE HCL INJ/PF 2 MG/ML AMPULE IV ONE ×2 (17:11→18:23)
[2019-01-14 19:33] VITALS: BP 170/84
--- NOTE | 2019-01-14 22:36 | EKG REPORT ---
SEVERITY:- ABNORMAL ECG - SINUS RHYTHM PROBABLE LEFT ATRIAL ABNORMALITY PROBABLE LEFT VENTRICULAR HYPERTROPHY : Confirmed by: Tacho Alonzo 14-Jan-2019 22:36:16
== END 2019-01-14 19:37 | disposition short-term general hospital (02) ==
LOC: ER 13:18
DX: S72.141A Displaced intertrochanteric fracture of right femur, initial encounter for closed fracture (principal); S09.90XA Unspecified injury of head, initial encounter; M25.551 Pain in right hip; R07.81 Pleurodynia; W01.0XXA Fall on same level from slipping, tripping and stumbling without subsequent striking against object, initial encounter; J44.9 Chronic obstructive pulmonary disease, unspecified; I10 Essential (primary) hypertension; Z87.891 Personal history of nicotine dependence; E11.9 Type 2 diabetes mellitus without complications
CPT/HCPCS: 93005; 96376; 99285; 51702; 96374; 96375; 86900; 86901; 36415; 86850; 85025; 80048; 71045; 73502; 70450; 72125; 93010; J3010; J1885; J1170

== ENCOUNTER 2019-03-05 09:32 | Emergency (ER) | payer MEDICARE, OTHER ==
--- NOTE | 2019-03-05 11:15 | RADIOLOGY REPORT (SQ) ---
EXAM DESCRIPTION: KUB/ABDOMEN (SINGLE VIEW) COMPLETED DATE/TIME: 03/05/2019 10:50 am REASON FOR STUDY: Abdominal pain, x2 days COMPARISON: None. NUMBER OF VIEWS: One view. TECHNIQUE: Supine radiographic image of the abdomen acquired. LIMITATIONS: None. FINDINGS: BOWEL GAS PATTERN: Normal bowel gas pattern. No dilated loops. CALCIFICATIONS: No suspicious calcifications. SOFT TISSUES: No gross mass or suggestion of organomegaly. HARDWARE: None in the abdomen. BONES: No acute fracture. No worrisome bone lesions. OTHER: No other significant finding. IMPRESSION: NO RADIOGRAPHIC EVIDENCE FOR ACUTE ABDOMINAL DISEASE. TECHNICAL DOCUMENTATION: JOB ID: [id number] [facility]- All Rights Reserved Reading location - IP/workstation name: [email or web address]
--- NOTE | 2019-03-05 11:15 | RADIOLOGY REPORT (SQ) ---
EXAM DESCRIPTION: FEMUR RIGHT COMPLETED DATE/TIME: 03/05/2019 10:50 am REASON FOR STUDY: Fall, pain from hip to knee, R hip fx 01/14/19 COMPARISON: 01/14/2019. NUMBER OF VIEWS: Two views. TECHNIQUE: Two radiographic images acquired of the right femur to include hip and knee in at least o ne projection. LIMITATIONS: None. FINDINGS: MINERALIZATION: Normal. BONES: Previous intertrochanteric fracture with intramedullary jun present. No acute fracture. No w orrisome bone lesions. SOFT TISSUES: No obvious swelling or foreign body. Vascular stent. OTHER: No other significant finding. IMPRESSION: PREVIOUS INTERTROCHANTERIC FRACTURE WITH INTRAMEDULLARY JUN. NO ACUTE FINDINGS. TECHNICAL DOCUMENTATION: JOB ID: [id number] [employer]- All Rights Reserved Reading location - IP/workstation name: [email or web address]
--- NOTE | 2019-03-05 11:16 | RADIOLOGY REPORT (SQ) ---
EXAM DESCRIPTION: HIP LEFT AP/LATERAL COMPLETED DATE/TIME: 03/05/2019 10:50 am REASON FOR STUDY: Unwitnessed fall, left hip pain COMPARISON: 01/14/2019. NUMBER OF VIEWS: Two views. TECHNIQUE: AP pelvis and additional frog-leg view of the left hip. LIMITATIONS: None. FINDINGS: MINERALIZATION: Normal. LEFT HIP: No fracture or dislocation. No worrisome bone lesions. RIGHT HIP: Previous intertrochanteric fracture with hardware present. No worrisome bone lesions. PUBIS AND ISCHIUM: No fracture. PELVIS: No fracture. SACRUM: No fracture or dislocation. No worrisome bone lesions. LOWER LUMBAR SPINE: No fracture or dislocation. No worrisome bone lesions. Degenerative disc disease . SOFT TISSUES: No findings. OTHER: No other significant finding. IMPRESSION: NEGATIVE STUDY OF THE LEFT HIP AND PELVIS. NO RADIOGRAPHIC EVIDENCE OF ACUTE INJURY. TECHNICAL DOCUMENTATION: JOB ID: [id number] [employer]- All Rights Reserved Reading location - IP/workstation name: [email or web address]
--- NOTE | 2019-03-05 11:20 | RADIOLOGY REPORT (SQ) ---
EXAM DESCRIPTION: L SPINE WHOLE COMPLETED DATE/TIME: 03/05/2019 10:50 am REASON FOR STUDY: fall, back pain COMPARISON: None. NUMBER OF VIEWS: Five views including obliques. TECHNIQUE: AP, lateral, oblique, and sacral radiographic images acquired of the lumbar spine. LIMITATIONS: None. FINDINGS: MINERALIZATION: Normal. SEGMENTATION: Normal. No transitional anatomy. ALIGNMENT: Normal. VERTEBRAE: Maintained height. No fracture or worrisome bone lesion. DISCS: Multilevel disc space narrowing with osteophytes. POSTERIOR ELEMENTS: Pedicles and facets are intact. No pars defect or posterior arch defects. Facet arthropathy is present. HARDWARE: None in the spine. PARASPINAL SOFT TISSUES: Normal. PELVIS: Intact as visualized. No fractures or worrisome bone lesions. SI joints intact. OTHER: No other significant finding. IMPRESSION: SPONDYLOSIS WITHOUT BONE LESION OR FRACTURE. TECHNICAL DOCUMENTATION: JOB ID: [id number] [employer]- All Rights Reserved Reading location - IP/workstation name: [email or web address]
--- NOTE | 2019-03-05 11:22 | RADIOLOGY REPORT (SQ) ---
EXAM DESCRIPTION: T SPINE AP/LAT COMPLETED DATE/TIME: 03/05/2019 10:50 am REASON FOR STUDY: fall, back pain COMPARISON: None. NUMBER OF VIEWS: Two views. TECHNIQUE: AP and lateral radiographic images acquired of the thoracic spine. LIMITATIONS: None. FINDINGS: MINERALIZATION: Normal. ALIGNMENT: Normal. No scoliosis. VERTEBRAE: There is minimal compression of the superior endplate of T12, actually better visualized o n the oblique views of the lumbar spine. The thoracic vertebrae are otherwise intact. DISCS: Multilevel disc space narrowing with osteophytes. HARDWARE: None in the spine. MEDIASTINUM AND SOFT TISSUES: Normal heart size and aortic contour. No soft tissue abnormality. VISUALIZED LUNG CORCORAN: Clear. OTHER: No other significant finding. IMPRESSION: MULTILEVEL CHRONIC DEGENERATIVE CHANGES. MINIMAL COMPRESSION OF THE SUPERIOR ENDPLATE O F T12. UNABLE TO DETERMINE IF THIS IS RECENT OR OLD. TECHNICAL DOCUMENTATION: JOB ID: [id number] [employer]- All Rights Reserved Reading location - IP/workstation name: [email or web address]
[2019-03-05 11:23] LABS: ABSOLUTE EOSINOPHILS # (AUTO) 0.2 10^3/uL (0.0-0.6); ABSOLUTE LYMPHOCYTES (AUTO) 1.8 10^3/uL (0.5-4.7); ABSOLUTE MONOCYTES (AUTO) 0.5 10^3/uL (0.1-1.4); ABSOLUTE NEUT (AUTO) 6.7 10^3/uL (1.7-8.2); BASOPHILS % (AUTO) 0.5 % (0-2); HEMATOCRIT 31.5 % (36.0-47.0); HEMOGLOBIN 10.5 g/dL (12.0-15.5); LYMPHOCYTES % (AUTO) 19.4 % (13-45); MEAN CORPUSCULAR HEMOGLOBIN 29.5 pg (27.0-33.4); MEAN CORPUSCULAR HGB CONC 33.3 g/dL (32.0-36.0); MEAN CORPUSCULAR VOLUME 89 fl (80-97); MONOCYTES % (AUTO) 5.9 % (3-13); PLATELET COUNT 269 10^3/uL (150-450); RED BLOOD COUNT 3.55 10^6/uL (3.72-5.28); RED CELL DISTRIBUTION WIDTH 16.6 % (11.5-14.0); SEGMENTED NEUTROPHILS % (AUTO) 72.2 % (42-78); TOTAL CELLS COUNTED % (AUTO) 100 %; WHITE BLOOD COUNT 9.2 10^3/uL (4.0-10.5)
[2019-03-05 11:31] LABS: APPEARANCE,URINE CLEAR; BILIRUBIN,URINE NEGATIVE (NEGATIVE); COLOR,URINE YELLOW; GLUCOSE, URINE NEGATIVE (NEGATIVE); KETONES,URINE NEGATIVE (NEGATIVE); LEUKOCYTE ESTERASE,URINE NEGATIVE (NEGATIVE); NITRITE,URINE NEGATIVE (NEGATIVE); PROTEIN,URINE NEGATIVE (NEGATIVE); URINE SPECIFIC GRAVITY 1.012; UROBILINOGEN,URINE NEGATIVE mg/dL (<2.0)
[2019-03-05 11:42] LABS: ALANINE AMINOTRANSFERASE 21 U/L (9-52); ALBUMIN 3.7 g/dL (3.5-5.0); ALKALINE PHOSPHATASE 109 U/L (38-126); ANION GAP 8 (5-19); ASPARTATE AMINO TRANSFERASE 21 U/L (14-36); BILIRUBIN,DIRECT 0.3 mg/dL (0.0-0.4); BILIRUBIN,TOTAL 0.6 mg/dL (0.2-1.3); BLOOD UREA NITROGEN 15 mg/dL (7-20); CARBON DIOXIDE 30 mmol/L (22-30); CHLORIDE 97 mmol/L (98-107); GLUCOSE 135 mg/dL (75-110); POTASSIUM 4.2 mmol/L (3.6-5.0); SODIUM 134.9 mmol/L (137-145); TOTAL PROTEIN 7.2 g/dL (6.3-8.2)
[2019-03-05 11:43] LABS: CREATINE KINASE < 20 U/L (30-135)
[2019-03-05] MEDS ORDERED: ACETAMINOPHEN 325 MG TABLET PO ONE (13:41)
[2019-03-05] MEDS ORDERED: IBUPROFEN 400 MG TABLET PO ONE (13:41)
[2019-03-05 13:59] VITALS: BP 196/70
--- NOTE | 2019-03-05 14:25 | ER Document Report ---
Entered by JESSICA GALVAN SCRIBE 03/05/19 1023 Acting as scribe for:VANIA MELCHOR MD ED Fall - General Chief Complaint: Fall Injury Stated Complaint: BACK PAIN Time Seen by Provider: 03/05/19 09:39 Primary Care Provider: NILA RIVERO MD [Primary Care Provider] - Follow up as needed Notes: Patient is a 73-year-old female presenting to the emergency department with complaints of a fall with associated back pain. Daughter at bedside states that she fell in the kitchen last night and could not get up. Spouse at bedside states that he was the one that found her on the ground and that she normally does not ambulate on her own. Daughter states that the patient had a fall on January 14 in which she broke her right hip and underwent rehabilitation for 30 days. The daughter reports that the patient has not been doing any physical therapy. She was reluctant to participate while she was at [facility]. At home now the physical therapy people coming to see her have not been successful in getting her up and walking with a walker. The daughter reports this is primarily due to patient's high anxiety, so she did see Dr. Rivero last week and was prescribed Celexa. She has been taking that now for 3 or 4 days but they have not seen an improvement yet. They were very surprised to find that she got up on her own and walked more than 10 feet before she fell in the kitchen. TRAVEL OUTSIDE OF THE [place] IN LAST 30 DAYS: No - Related data Allergies/Adverse Reactions: Penicillins Allergy (Verified 12/11/16 15:36) Sulfa (Sulfonamide Antibiotics) Allergy (Verified 12/11/16 15:36) Past Medical History - General Information source: Patient, Relative, COUNTS INCLUDE [facility] BEDS AT THE [facility] Records - Social History Smoking Status: Never Smoker Cigarette use (# per day): No Chew tobacco use (# tins/day): No Frequency of alcohol use: None Drug Abuse: None Lives with: Family Family History: COPD, Hypertension - Past Medical History Cardiac Medical History: Reports: Hx Hypertension, Hx Peripheral Vascular Disease Pulmonary Medical History: Reports: Hx COPD Endocrine Medical History: Reports: Hx Diabetes Mellitus Type 2 Past Surgical History: Reports: Hx Appendectomy, Hx Hysterectomy Review of Systems - Review of Systems Constitutional: No symptoms reported EENT: No symptoms reported Cardiovascular: No symptoms reported Respiratory: No symptoms reported Gastrointestinal: No symptoms reported Genitourinary: No symptoms reported Female Genitourinary: No symptoms reported Musculoskeletal: See HPI, Back pain, Muscle pain Skin: No symptoms reported Hematologic/Lymphatic: No symptoms reported Neurological/Psychological: No symptoms reported -: Yes All other systems reviewed and negative Physical Exam - Notes Notes: Physical Exam: General: Alert, dry mouth, dementia. HEENT: Normocephalic. Atraumatic. PERRL. Extraocular movements intact. Oropharynx clear. Neck: Supple. Non-tender. Respiratory: No respiratory distress. Clear and equal breath sounds bilaterally. Cardiovascular: Regular rate and rhythm. Abdominal: Normal Inspection. Non-tender. No distension. Normal Bowel Sounds. Back: Warm/sweaty. Mid-upper lumbar tenderness to palpation that extends to mid- upper thoracic tenderness to palpation. No deformity or step off. Extremities: Moves all four extremities. Upper extremities: Normal ROM. First several minor skin tears and abrasions noted on the left upper arm. Lower extremities: Right hip tenderness to palpation. Anterior and medial thigh tenderness to palpation. Left hip tenderness to palpation when attempting to rotate hip. Decubitus ulcer on right lateral heal. A bandage was found tightly wrapped around the mid-foot causing an indentation on the plantar aspect of the foot. Normal ROM. Neurological: Normal cognition. AAOx4. Normal speech. Psychological: Normal affect. Normal Mood. Skin: Warm. Dry. Normal color. Course - Laboratory Result Diagrams: 03/05/19 11:10 03/05/19 11:10 Laboratory results interpreted by me: 03/05/19 03/05/19 11:10 11:10 RBC 3.55 L Hgb 10.5 L Hct 31.5 L RDW 16.6 H Sodium 134.9 L Chloride 97 L Creatinine 0.42 L Glucose 135 H Creatine Kinase < 20 L - Diagnostic Test Radiology reviewed: Image reviewed, Reports reviewed - X-rays show minimal compression of the superior endplate of T12, which does not appear to be present on previous films. X-rays of the abdomen show a large amount of stool. X-rays of the femurs, hips and pelvic bones are unremarkable. Discharge - Discharge Clinical Impression: Fall Qualifiers: Encounter type: initial encounter Qualified Code(s): W19.XXXA - Unspecified fall, initial encounter T12 compression fracture Qualifiers: Encounter type: initial encounter Qualified Code(s): S22.080A - Wedge compression fracture of T11-T12 vertebra, initial encounter for closed fracture Condition: Stable Disposition: HOME, SELF-CARE Additional Instructions: Compression Fracture of the Spine A vertebra within your spine has been crushed. This is called a "compression fracture." Typically, this type of injury is caused by a sudden bending or compressing force such as an auto accident or a fall. Although painful, the fracture is not serious. You can expect to recover fully within a few weeks. The treatment of this fracture is essentially the same as for a severe back strain. You should rest in bed for a few days until the pain eases, then begin light activity. A re-check will determine when you are ready to resume walking. Ice pack the painful area at first. After you are active again, you may want to apply gentle heat intermittently to relax sore muscles. You can continue with ice packs if you find them helpful in reducing muscle pain. Call the doctor or return at once if you develop radiating pains, muscle weakness, problems with the bladder or bowels, or numbness. Follow-up with your primary care provider and the physicians you are going to see at [facility] this week for recheck. Take Tylenol for pain as needed. RETURN TO THE EMERGENCY ROOM IF ANY NEW OR WORSENING SYMPTOMS. Referrals: NILA RIVERO MD [Primary Care Provider] - Follow up as needed Scribe Attestation: 03/05/19 10:58 I personally performed the services described in the documentation, reviewed and edited the documentation which was dictated to the scribe in my presence, and it accurately records my words and actions. I personally performed the services described in the documentation, reviewed and edited the documentation which was dictated to the scribe in my presence, and it accurately records my words and actions.
== END 2019-03-05 14:18 | disposition home or self-care (01) ==
LOC: ER 09:32
DX: S22.080A Wedge compression fracture of T11-T12 vertebra, initial encounter for closed fracture (principal); W19.XXXA Unspecified fall, initial encounter; L89.619 Pressure ulcer of right heel, unspecified stage; F41.9 Anxiety disorder, unspecified; F03.90 Unspecified dementia, unspecified severity, without behavioral disturbance, psychotic disturbance, mood disturbance, and anxiety; I10 Essential (primary) hypertension; E11.51 Type 2 diabetes mellitus with diabetic peripheral angiopathy without gangrene; Z88.0 Allergy status to penicillin; Z88.2 Allergy status to sulfonamides
CPT/HCPCS: 99284; 36415; 87040; 87086; 82550; 85025; 87088; 80053; 81001; 84484; 83605; 73552; 73502; 74018; 72110; 72070; A9270 ×2; J3490

== ENCOUNTER → 2019-05-16 | Outpatient (CLI) | payer MEDICARE, OTHER ==
--- NOTE | 2019-05-16 17:11 | XCELERA REPORT ---
[address] [address] Lower Extremity Arterial Evaluation Name: ARAM SALTER Age: 73 yrs Gender: Female : 1945 Patient Status: Outpatient Patient Location: Study Date: 05/16/2019 10:13 AM Procedure: A color flow and duplex scan of the lower extremity arteries was performed bilaterally with velocity and waveform anaylsis. Ankle brachial indicies performed. Reason For Study: RT FOOT ULCER Ordering Physician: HARINDER LAGUERRE Performed By: Broderick Rodgers Measurements and Calculations Right Left CLIENT [employer]CH[employer] SUPPORT ASSOCIATE PSV 311.1 201.3 cm/sec Prox PFA PSV -206.2 -259.3cm/sec Prox SFA PSV 148.4 -747.1cm/sec Mid SFA PSV -84.3 -125.7cm/sec Dist SFA PSV -169.7 -57.6 cm/sec Prox Pop A PSV 62.5 50.6 cm/sec Dist SALIMA PSV 86.4 42.7 cm/sec Dist OLIVE PACKER PSV -62.5 21.6 cm/sec Zeyad Pedis PSV -55.0 27.7 cm/sec Right Side Arterial Evaluation High velocity and Biphasic waveforms noted in the Common Femoral artery and Profunda Femoris, moderate spectral broadening. Biphasic with normal velocity, spectral broadening from the Femoral to the infrageniculate vessels . Ankle Brachial index 0.8. Left Side Arterial Evaluation High normal velocity and Biphasic waveforms noted in the Common Femoral artery and Profunda Femoris, moderate spectral broadening. Monophasic with low normal velocity, spectral broadening from the Femoral to the infrageniculate vessels . Ankle Brachial index 0.52. Interpretation Summary Moderate hemodynamically significant lesions in the right lower extremity only, on duplex imaging, at rest. Severe hemodynamically significant lesions in the left lower extremity only, on duplex imaging, at rest. Duplex indicates high grade stenosis in the Common Femoral and Profunda on the right. Stenosis in the Left .Common Femoral and Profunda. SHWETA on the right indicates mild obstruction, Moderate on the left. These are less severe than indicated on duplex imaging. Clinical correlation is recommended. : HARINDER LAGUERRE > Miller Montgomery
--- NOTE | 2019-05-16 17:14 | XCELERA REPORT ---
[address] [address] Lower Extremity Venous Evaluation Procedure: A bilateral duplex scan of the lower extremity veins was performed. The evaluation included responses to compression and other maneuvers with patient in the supine and standing positions to assess venous insufficiency. Right Sided Venous Evaluation Challenging study due to patient's inability to cooperate.. Deep venous system evaluation shows patent veins with no significant reflux identified. Saphena Femoral junction: no reflux. Greater Saphenous vein, Proximal thigh: reflux: no reflux. Greater Saphenous vein, mid thigh: reflux:no reflux. Greater Saphenous vein, Distal thigh: reflux:no reflux. Greater Saphenous vein, Proximal below knee: reflux: none Greater Saphenous vein, Mid below knee: reflux: none. Greater Saphenous vein, Distal below knee: reflux: no reflux. No significant Perforators identified. Left Sided Venous Evaluation Challenging study due to patient's inability to cooperate.. Deep venous system evaluation shows patent veins with no significant reflux identified. Saphena Femoral junction: no reflux. Greater Saphenous vein, Proximal thigh: reflux: no reflux. Greater Saphenous vein, mid thigh: reflux:no reflux. Greater Saphenous vein, Distal thigh: reflux:no reflux. Greater Saphenous vein, Proximal below knee: reflux: none Greater Saphenous vein, Mid below knee: reflux: none. Greater Saphenous vein, Distal below knee: reflux: no reflux. No significant Perforators identified. Interpretation Summary No duplex evidence of DVT or obstruction in the bilateral lower extremities. No significant deep or superficial reflux identified. Name: ARAM SALTER Age: 73 yrs Gender: Female : 1945 Patient Status: Outpatient Patient Location: Study Date: 05/16/2019 10:43 AM Reason For Study: RT FOOT ULCER Ordering Physician: HARINDER LAGUERRE Performed By: Broderick Rodgers : HARINDER LAGUERRE > Miller Montgomery
== END ==
LOC: SP 09:46
PROVIDERS: ATTEND Preventive Medicine Undersea and Hyperbaric Medicine
DX: L97.412 Non-pressure chronic ulcer of right heel and midfoot with fat layer exposed (principal)
CPT/HCPCS: 93922; 93925; 93970